=== PATIENT | male | born 1960 | race Caucasian/White ===

== ENCOUNTER 2021-07-30 11:33 | Emergency (ER) | payer MEDICAID ==
[~2021-07-30] VITALS: Ht 167.6 cm; Wt 75.0 kg
[2021-07-30] MEDS ORDERED: SODIUM CHLORIDE 0.9% 1,000 ML IV ONE (12:30)
[2021-07-30 13:03] LABS: BASOPHILS % 0.9 % (0.0-2.0); EOSINOPHILS % 0.7 % (0.0-5.0); LYMPHOCYTES % 20.3 % (20.0-50.0); MEAN CORPUSCULAR HEMOGLOBIN 27.2 pg (28.0-32.0); MEAN PLATELET VOLUME 7.2 fl (7.4-10.4); NEUTROPHILS % 65.1 % (40.0-76.0); PLATELET 311 x1000/uL (130-400); RED BLOOD CELL COUNT 4.05 mill/uL (4.7-6.1); RED CELL DISTRIBUTION WIDTH 17.9 % (11.6-14.6)
[2021-07-30 13:14] LABS: CHLORIDE 107 mEq/L (98-107)
[2021-07-30 13:24] LABS: ETHANOL BLOOD < 10 mg/dL
[2021-07-30 14:50] VITALS: BP 130/91
== END 2021-07-30 15:22 | disposition home or self-care (01) ==
LOC: ER 11:33
DX: F15.90 Other stimulant use, unspecified, uncomplicated (principal); D64.9 Anemia, unspecified; R51.9 Headache, unspecified; I10 Essential (primary) hypertension; Z13.9 Encounter for screening, unspecified
CPT/HCPCS: 36415; 70450; 71045; 80053; 80307; 80320; 80329; 82140; 82962; 83690; 83880; 84484; 85025; 93005; 96360; 99285; J7030; G0480